=== PATIENT | male | born 1975 | race African-American/Black ===

== ENCOUNTER 2021-07-24 12:41 | Emergency (ER) | payer OTHER ==
[2021-07-24 12:56] VITALS: BP 166/94; PULSE 68; TEMP 98.6; BMI 40.6
[2021-07-24] MEDS ORDERED: METOCLOPRAMIDE HCL INJECTION 10 MG/2 ML VIAL IVPUSH ONE (14:20)
[2021-07-24] MEDS ORDERED: KETOROLAC TROMETHAMINE 30 MG/1 ML VIAL IVPUSH ONE (14:20)
[2021-07-24] MEDS ORDERED: KETOROLAC TROMETHAMINE 30 MG/1 ML VIAL ONE (14:51)
[2021-07-24] MEDS ORDERED: METOCLOPRAMIDE HCL INJECTION 10 MG/2 ML VIAL ONE (14:51)
== END 2021-07-24 15:32 | disposition home or self-care (01) ==
LOC: JER 12:41
PROC: 3E033GC Introduction of Other Therapeutic Substance into Peripheral Vein, Percutaneous Approach (ICD-10-PCS; principal; 2021-07-24)
PROC: 3E0333Z Introduction of Anti-inflammatory into Peripheral Vein, Percutaneous Approach (ICD-10-PCS; 2021-07-24)
PROC: 3E033GC Introduction of Other Therapeutic Substance into Peripheral Vein, Percutaneous Approach (ICD-10-PCS; 2021-07-24)
DX: F07.81 Postconcussional syndrome (principal)
CPT/HCPCS: 70450-TC; 96374; 96375; 99284-25

== ENCOUNTER → 2021-08-17 | Emergency (ER) | payer OTHER ==
[~2021-08-17] MED LIST: MIDAZOLAM HCL 2 MG/2 ML SINGLE DOSE VIAL ONE; NEOSTIGMINE METHYLSULFATE 0.5 MG/ML - 10 ML MDV ONE; PIPERACILLIN/TAZOB 4.5 GM 4.5 GM in DEXTROSE 5%-WATER 100 ML IVPB ONE; PIPERACILLIN/TAZOBACTAM 4.5 GM VIAL IVPB ONE; PROPOFOL 20 ML ONE; ROCURONIUM BROMIDE 50 MG/5 ML SYRINGE ONE
[2021-08-17 22:31] VITALS: BMI 40.6
[2021-08-17 23:47] LABS: ALBUMIN 3.7 g/dl (3.4-5.0); BILIRUBIN,TOTAL 0.5 mg/dl (0.2-1); TOT PROT 6.5 g/dl (6.4-8.2)
[2021-08-17 23:48] LABS: HEMATOCRIT 39.2 % (35.4-49); HEMOGLOBIN 13.7 G/dL (11.7-16.9); MCH 28.1 pg (25.7-33.7); MEAN CELL VOLUME 80.4 fl (80-96); MEAN PLT VOLUME 6.7 fl (7.5-11.1); PLATELET COUNT 183.1 10^3/uL (134-434); RBC 4.88 10^6/uL (4.00-5.60); RDW 15.1 % (11.9-15.9); WHITE BLOOD COUNT 9.1 10^3/uL (4.0-10.8)
[2021-08-17 23:54] LABS: PLATELET ESTIMATE ADEQUATE
[2021-08-18 04:36] VITALS: BP 153/95; PULSE 82; TEMP 98.8
== END ==
LOC: FER 22:13
PROC: 3E033NZ Introduction of Analgesics, Hypnotics, Sedatives into Peripheral Vein, Percutaneous Approach (ICD-10-PCS; principal; 2021-08-17)
PROC: 3E033NZ Introduction of Analgesics, Hypnotics, Sedatives into Peripheral Vein, Percutaneous Approach (ICD-10-PCS; 2021-08-17)
PROC: 3E03329 Introduction of Other Anti-infective into Peripheral Vein, Percutaneous Approach (ICD-10-PCS; 2021-08-17)
DX: K35.80 Unspecified acute appendicitis (principal)
CPT/HCPCS: 36415; 74176-TC; 80053; 81003; 85025; 96374; 96375; 96376; 99285-25; C9803-CS; U0003; U0005

== ENCOUNTER 2021-08-18 12:32 | Day surgery (SDC) | payer OTHER ==
[2021-08-18 07:55] VITALS: BMI 41.8
[~2021-08-18 12:32] MED LIST changes: +BUPIVACAINE HCL/PF 0.25% (2.5MG/ML) 10 ML VIAL IJ ONE; +BUPIVACAINE HCL/PF 0.25% (2.5MG/ML) 10 ML VIAL ONE; +FENTANYL CITRATE/PF 50 MCG/ML VIAL ONE; +HYDROmorphone HCL CARPU-JECT 2 MG/1 ML DISP.SYRIN IVPUSH PRN; +LACTATED RINGERS SOLUTION 1,000 ML IV SCH; +LACTATED RINGERS SOLUTION 1,000 ML/1,000 ML INFUS.BAG IV SCH; -MIDAZOLAM HCL 2 MG/2 ML SINGLE DOSE VIAL ONE; -NEOSTIGMINE METHYLSULFATE 0.5 MG/ML - 10 ML MDV ONE; +ONDANSETRON 4 MG/2 ML VIAL IVPUSH PRN; -PIPERACILLIN/TAZOB 4.5 GM 4.5 GM in DEXTROSE 5%-WATER 100 ML IVPB ONE; +PIPERACILLIN/TAZOBACTAM 3.375 GM VIAL IVPB ONE; -PROPOFOL 20 ML ONE; -ROCURONIUM BROMIDE 50 MG/5 ML SYRINGE ONE; +oxyCODONE HCL 5 MG TABLET PO PRN
[2021-08-18] MEDS ORDERED: ACETAMINOPHEN 325 MG TABLET (FP) PO PRN (15:20)
[2021-08-19 04:30] VITALS: TEMP 99.3
[2021-08-19 09:51] LABS: BASO % 0.2 % (0-2.0); EOS % 0.6 % (0-4.5); HEMATOCRIT 40.5 % (35.4-49); HEMOGLOBIN 13.5 GM/dL (11.7-16.9); LYMPH % 16.2 % (8-40); MCH 26.6 pg (25.7-33.7); MCHC 33.3 g/dl (32.0-35.9); MEAN CELL VOLUME 79.6 fl (80-96); MEAN PLT VOLUME 6.8 fl (7.5-11.1); MONO % 10.5 % (3.8-10.2); NEUT % 72.5 % (42.8-82.8); PLATELET COUNT 203 10^3/uL (134-434); RBC 5.09 M/mm3 (4.00-5.60); RDW 13.9 % (11.9-15.9); WHITE BLOOD COUNT 5.9 K/mm3 (4.0-10.0)
[2021-08-19] MEDS ORDERED: LOSARTAN POTASSIUM 50 MG TABLET PO SCH (10:00)
[2021-08-19] MEDS ORDERED: DIVALPROEX SODIUM 125 MG TABLET E.C. PO SCH (10:00)
[2021-08-19 10:23] LABS: CALCIUM 8.5 mg/dL (8.5-10.1)
[2021-08-19 10:24] LABS: BLOOD UREA NITROGEN 8.6 mg/dL (7-18)
[2021-08-19 10:40] VITALS: BP 160/97; PULSE 71
== END 2021-08-19 12:00 | disposition home or self-care (01) ==
LOC: J8W 12:32 → JASUSAT 12:32 → J6S 12:32 → EDSTATUS 08-19 08:46 → J6S 08-19 08:48 → JASUSAT 08-19 08:48
PROVIDERS: ATTEND Nurse Practitioner Acute Care
PROC: 0DTJ4ZZ Resection of Appendix, Percutaneous Endoscopic Approach (ICD-10-PCS; principal; 2021-08-18 08:00)
DX: K35.80 Unspecified acute appendicitis (principal)
CPT/HCPCS: 36415; 80048; 85025; 88304-TC; 93005; 94760

== ENCOUNTER 2023-01-19 07:38 | Emergency (ER) | payer OTHER ==
[2023-01-19] MEDS ORDERED: morphine CARPU-JECT 4 MG/1 ML DISP.SYRIN IVPUSH ONE (07:47)
[2023-01-19] MEDS ORDERED: ONDANSETRON 4 MG/2 ML VIAL IVPUSH ONE (07:47)
[2023-01-19] MEDS ORDERED: SODIUM CHLORIDE 0.9% 1000 ML INFUS.BAG IV ONE (07:47)
[2023-01-19] MEDS ORDERED: morphine SULFATE 4 MG/ML VIAL ONE (07:50)
[2023-01-19] MEDS ORDERED: ONDANSETRON 4 MG/2 ML VIAL ONE (08:06)
[2023-01-19] MEDS ORDERED: morphine CARPU-JECT 2 MG/1 ML DISP.SYRIN IVPUSH ONE (08:29)
[2023-01-19 08:38] LABS: HEMATOCRIT 41.2 % (35.4-49); HEMOGLOBIN 13.5 G/dL (11.7-16.9); MCH 26.4 pg (25.7-33.7); MCHC 32.7 g/dl (32.0-35.9); MEAN CELL VOLUME 80.7 fl (80-96); MEAN PLT VOLUME 7.1 fl (7.5-11.1); PLATELET COUNT 170.8 10^3/uL (134-434); RBC 5.11 10^6/uL (4.00-5.60); RDW 16.1 % (11.9-15.9); WHITE BLOOD COUNT 7.4 10^3/uL (4.0-10.8)
[2023-01-19 09:07] VITALS: BP 166/99; PULSE 64; RESP 16; TEMP 98; BMI 35.1
[2023-01-19 09:09] LABS: ALBUMIN 4.2 g/dl (3.4-5.0); BILIRUBIN,TOTAL 0.4 mg/dl (0.2-1); CALCIUM 9.2 mg/dl (8.5-10.1); CREATININE 1.5 mg/dl (0.6-1.3); POTASSIUM 3.8 mmol/L (3.5-5.1); TOT PROT 7.1 g/dl (6.4-8.2)
[2023-01-19 09:21] LABS: PLATELET ESTIMATE ADEQUATE
[2023-01-19] MEDS ORDERED: TAMSULOSIN HCL 0.4 MG CAP PO ONE (09:33)
[2023-01-19] MEDS ORDERED: ACETAMINOPHEN 1000 MG/100 ML BAG IVPB ONE (09:33)
[2023-01-19] MEDS ORDERED: TAMSULOSIN HCL 0.4 MG CAP ONE (09:41)
[2023-01-19] MEDS ORDERED: ACETAMINOPHEN INJECTION 100 ML IVPB ONE (09:41)
[2023-01-19] MEDS ORDERED: ACETAMINOPHEN 325 MG TABLET (FP) ONE (10:06)
[2023-01-19] MEDS ORDERED: ACETAMINOPHEN 325 MG TABLET (FP) PO ONE (10:08)
[2023-01-19] MEDS ORDERED: KETOROLAC TROMETHAMINE 15 MG/ML VIAL IM ONE (10:09)
[2023-01-19] MEDS ORDERED: KETOROLAC TROMETHAMINE 15 MG/ML VIAL ONE (10:16)
== END 2023-01-19 12:12 | disposition home or self-care (01) ==
LOC: FER 07:38
PROC: 3E033NZ Introduction of Analgesics, Hypnotics, Sedatives into Peripheral Vein, Percutaneous Approach (ICD-10-PCS; principal; 2023-01-19)
PROC: 3E033GC Introduction of Other Therapeutic Substance into Peripheral Vein, Percutaneous Approach (ICD-10-PCS; 2023-01-19)
PROC: 3E033GC Introduction of Other Therapeutic Substance into Peripheral Vein, Percutaneous Approach (ICD-10-PCS; 2023-01-19)
PROC: 3E033NZ Introduction of Analgesics, Hypnotics, Sedatives into Peripheral Vein, Percutaneous Approach (ICD-10-PCS; 2023-01-19)
PROC: 3E0233Z Introduction of Anti-inflammatory into Muscle, Percutaneous Approach (ICD-10-PCS; 2023-01-19)
DX: R10.31 Right lower quadrant pain (principal); N23 Unspecified renal colic
CPT/HCPCS: 36415; 74176-TC; 80053; 81003; 81015; 85027; 87086; 99284-25